=== PATIENT | male | born 1995 | race Two or more races ===

== ENCOUNTER 2018-04-06 00:06 | Emergency (ER) | payer MEDICAID ==
[~2018-04-06] VITALS: Ht 157.5 cm; Wt 113.0 kg
[2018-04-06] MEDS ORDERED: SODIUM CHLORIDE 0.9% 1,000 ML IV ONE (00:37)
[2018-04-06] MEDS ORDERED: KETOROLAC 30MG/ML VIAL IV ONE (00:45)
[2018-04-06 01:03] LABS: BASOPHILS % 0.4 % (0.0-2.0); EOSINOPHILS % 1.5 % (0.0-5.0); HEMOGLOBIN. 15.7 g/dL (14.0-18.0); LYMPHOCYTES % 25.7 % (20.0-50.0); MEAN CORPUSCULAR VOLUME 87.7 fL (80.0-94.0); MEAN PLATELET VOLUME 9.9 fl (7.4-10.4); NEUTROPHILS % 62.4 % (40.0-76.0); PLATELET 193 x1000/uL (130-400); RED BLOOD CELL COUNT 5.24 mill/uL (4.7-6.1); RED CELL DISTRIBUTION WIDTH 13.5 % (11.6-14.6)
[2018-04-06 01:09] LABS: CHLORIDE 105 mEq/L (98-107)
[2018-04-06 02:12] VITALS: BP 112/72
== END 2018-04-06 02:14 | disposition home or self-care (01) ==
LOC: ER 00:06
DX: R55 Syncope and collapse (principal); R07.2 Precordial pain; F41.9 Anxiety disorder, unspecified; J45.909 Unspecified asthma, uncomplicated; Y08.89XA Assault by other specified means, initial encounter; Y93.89 Activity, other specified; Y92.89 Other specified places as the place of occurrence of the external cause; Y99.8 Other external cause status
CPT/HCPCS: 36415; 71045; 80048; 85025; 93005; 96361; 96374; 99285; J1885; J7030; Z7610